=== PATIENT | female | born 2005 ===

== ENCOUNTER 2023-09-24 09:22 | Outpatient (CLI) | payer OTHER, SELFPAY ==
--- NOTE | ~2023-09-24 | US_ITS ---
Abdominal Sonogram: Real-time sonographic imaging of the abdomen was performed. Clinical History: Abdominal pain Findings: The liver appears normal with no evidence of mass lesion or bile duct dilatation. Main por joseluis vein demonstrates normal direction of flow. The spleen is normal in size without evidence of foca l lesion. The gallbladder is well distended, with small stones in the gallbladder neck. No gallbladd er wall thickening evident. The common bile duct measures 2 mm. The visualized pancreas, aorta, and IVC are unremarkable. The right kidney measures 10.1 cm in length and the left kidney measures 11.1 cm. There is no hydronephrosis or renal calculus. Impression: Cholelithiasis. Reviewed, dictated and finalized at location M. E COVERER Impression: Cholelithiasis.
== END 2023-09-24 09:23 | disposition home or self-care (01) ==
LOC: CHSIMG 09:27
PROVIDERS: PCP Family Medicine; Visit Provider Family Medicine
DX: R10.9 Unspecified abdominal pain (principal); K80.20 Calculus of gallbladder without cholecystitis without obstruction
CPT/HCPCS: 76700

== ENCOUNTER 2023-10-07 12:22 | Outpatient (CLI) | payer OTHER, SELFPAY ==
--- NOTE | ~2023-10-07 | NM_ITS ---
EXAMINATION: NM hepatobiliary w pharm DATE: 10/07/2023 14:20 INDICATION: Gallstones. Assess gallbladder function COMPARISON: None. TECHNIQUE: 4.6 mCi Tc-99m mebrofenin (Choletec) was administered intravenously. Scintigraphic images of the abdomen were obtained for one hour. 1.6 mcg sincalide (Kinevac) was administered by slow intr avenous infusion, and imaging was continued for 30 minutes. Gallbladder ejection fraction was calcula gerry by the technologist. FINDINGS: There is normal clearance of radiotracer from the blood pool. There is homogeneous tracer uptake by t he liver. Activity progresses to the gallbladder and bowel. The gallbladder ejection fraction (GBEF) is 73% (normal 10-90%, but most patient with gallbladder dysfunction have GBEF < 35% which does over lap with the normal range). IMPRESSION: 1. Normal hepatobiliary scan Reviewed, dictated and finalized at location A. RAM SUPPORT ASSISTANT
== END 2023-10-07 12:23 | disposition home or self-care (01) ==
LOC: CHSIMG 12:24
PROVIDERS: PCP Family Medicine; Visit Provider Family Medicine
DX: K80.20 Calculus of gallbladder without cholecystitis without obstruction (principal)
CPT/HCPCS: 78227; A9537; J2805

== ENCOUNTER 2024-02-18 14:57 | Outpatient (CLI) | payer OTHER, SELFPAY ==
--- NOTE | ~2024-02-18 | US_ITS ---
US soft tissue groin LT 02/18/2024 15:15 Indication: Palpable painful lumps left groin Procedure: High-resolution Limited ultrasound of the left groin Comparison: No prior studies for comparison. Findings: There are lymph nodes of the left groin, largest measuring 1.3 x 1.2 x 1 cm with normal fat ty hilum. Impression: 1: Mild left inguinal lymphadenopathy, likely reactive. Reviewed, dictated and finalized at location B. Impression: 1: Mild left inguinal lymphadenopathy, likely reactive.
== END 2024-02-18 14:58 | disposition home or self-care (01) ==
LOC: CHSIMG 14:58
PROVIDERS: PCP Family Medicine; Visit Provider Nurse Practitioner Family
DX: R59.0 Localized enlarged lymph nodes (principal)
CPT/HCPCS: 76882

== ENCOUNTER 2024-05-25 16:13 | Outpatient (CLI) | payer OTHER, SELFPAY | END 2024-05-25 16:14 | disposition home or self-care (01) | LOC: CHSLAB 16:15 | PROVIDERS: PCP Family Medicine; Visit Provider Family Medicine | DX: Z34.90 Encounter for supervision of normal pregnancy, unspecified, unspecified trimester (principal) | CPT/HCPCS: 36415; 84702 ==